=== PATIENT | female | born 1990 | race Caucasian/White ===

== ENCOUNTER 2017-12-26 10:17 | Emergency (ER) | payer MEDICAID ==
--- NOTE | 2017-12-26 11:20 | RADIOLOGY REPORT (SQ) ---
EXAM DESCRIPTION: CHEST PA/LAT COMPLETED DATE/TIME: 12/26/2017 11:12 am REASON FOR STUDY: cough/cp COMPARISON: 12/09/2015 EXAM PARAMETERS: NUMBER OF VIEWS: two views TECHNIQUE: Digital Frontal and Lateral radiographic views of the chest acquired. RADIATION DOSE: NA LIMITATIONS: none FINDINGS: LUNGS AND PLEURA: No opacities, masses or pneumothorax. No pleural effusion. MEDIASTINUM AND HILAR STRUCTURES: No masses or contour abnormalities. HEART AND VASCULAR STRUCTURES: Heart normal size. No evidence for failure. BONES: No acute findings. HARDWARE: None in the chest. OTHER: No other significant finding. IMPRESSION: NO SIGNIFICANT RADIOGRAPHIC FINDING IN THE CHEST. TECHNICAL DOCUMENTATION: JOB ID: [id number] [employer]- All Rights Reserved Reading location - IP/workstation name: [email or web address]
[2017-12-26 11:44] LABS: APPEARANCE,URINE SLIGHTLY-CLOUDY; BILIRUBIN,URINE NEGATIVE (NEGATIVE); COLOR,URINE AMBER; GLUCOSE, URINE NEGATIVE (NEGATIVE); KETONES,URINE NEGATIVE (NEGATIVE); LEUKOCYTE ESTERASE,URINE NEGATIVE (NEGATIVE); NITRITE,URINE NEGATIVE (NEGATIVE); PROTEIN,URINE NEGATIVE (NEGATIVE); URINE SPECIFIC GRAVITY 1.029; UROBILINOGEN,URINE NEGATIVE mg/dL (<2.0)
--- NOTE | 2017-12-26 11:48 | ER Document Report ---
ED General - General Chief Complaint: Breathing Difficulty Stated Complaint: FEVER/COUGH Time Seen by Provider: 12/26/17 10:51 Mode of Arrival: Ambulatory Information source: Patient Notes: Patient reports cough congestion and left flank pain. The pain does radiate down the left side. It is worse with movement or coughing. It is mild to moderate. Is intermittent. She denies any problems with urination. No vaginal bleeding or discharge. Some nausea but no vomiting. She states she is getting tired when she exerts herself. Symptoms are worse with exertion. TRAVEL OUTSIDE OF THE [place] IN LAST 30 DAYS: No - Related Data Allergies/Adverse Reactions: No Known Allergies Allergy (Verified 12/26/17 10:18) Past Medical History - General Information source: Patient - Social History Smoking Status: Current Every Day Smoker Chew tobacco use (# tins/day): No Frequency of alcohol use: Occasional Drug Abuse: None Family History: Reviewed & Not Pertinent Patient has suicidal ideation: No Patient has homicidal ideation: No Neurological Medical History: Denies: Hx Seizures Renal/ Medical History: Denies: Hx Kidney Stones, Hx Peritoneal Dialysis GI Medical History: Denies: Hx Gastroesophageal Reflux Disease Past Surgical History: Reports: Hx Section. Denies: Hx Hysterectomy, Hx Pacemaker - Immunizations Hx Diphtheria, Pertussis, Tetanus Vaccination: Yes Review of Systems - Review of Systems Constitutional: Chills, Malaise Cardiovascular: Chest pain. denies: Palpitations Respiratory: Cough. denies: Sputum -: Yes All other systems reviewed and negative Physical Exam - Vital signs Vitals: Temp Pulse Resp BP Pulse Ox 99.2 F 93 16 122/83 100 12/26/17 10:23 12/26/17 10:23 12/26/17 10:23 12/26/17 10:23 12/26/17 10:23 Interpretation: Normal - General General appearance: Appears well, Alert - HEENT Head: Normocephalic, Atraumatic Eyes: Normal Pupils: PERRL - Respiratory Respiratory status: No respiratory distress Chest status: Nontender Breath sounds: Normal Chest palpation: Normal - Cardiovascular Rhythm: Regular Heart sounds: Normal auscultation Murmur: No - Abdominal Inspection: Normal Distension: No distension Bowel sounds: Normal Tenderness: Nontender Organomegaly: No organomegaly - Back Back: Normal, Nontender - Extremities General upper extremity: Normal inspection, Nontender, Normal color, Normal ROM , Normal temperature General lower extremity: Normal inspection, Nontender, Normal color, Normal ROM , Normal temperature, Normal weight bearing. No: Poncho's sign - Neurological Neuro grossly intact: Yes Cognition: Normal Orientation: AAOx4 Sammy Coma Scale Eye Opening: Spontaneous Bowman Coma Scale Verbal: Oriented Sammy Coma Scale Motor: Obeys Commands Sammy Coma Scale Total: 15 Speech: Normal Motor strength normal: LUE, RUE, LLE, RLE Sensory: Normal - Psychological Associated symptoms: Normal affect, Normal mood - Skin Skin Temperature: Warm Skin Moisture: Dry Skin Color: Normal Course - Vital Signs Vital signs: Temp Pulse Resp BP Pulse Ox 99.2 F 93 16 122/83 100 12/26/17 10:23 12/26/17 10:23 12/26/17 10:23 12/26/17 10:23 12/26/17 10:23 - Diagnostic Test Radiology reviewed: Image reviewed, Reports reviewed - Patient's chest x-ray showed no evidence of infiltrate or edema. Discharge - Discharge Clinical Impression: Viral syndrome Condition: Stable Disposition: HOME, SELF-CARE Instructions: Viral Syndrome ([facility]) Additional Instructions: Please call your primary doctor as soon as possible to arrange follow-up Prescriptions: Tramadol HCl [Ultram 50 mg Tablet] 50 mg PO Q4HP PRN #10 tab PRN Reason: Forms: Return to Work
[2017-12-26 11:59] VITALS: BP 108/66
== END 2017-12-26 11:59 | disposition home or self-care (01) ==
LOC: ER 10:17
DX: B34.9 Viral infection, unspecified (principal); R05 Cough; R10.9 Unspecified abdominal pain; R11.0 Nausea; R53.83 Other fatigue; R53.81 Other malaise; R68.83 Chills (without fever); F17.200 Nicotine dependence, unspecified, uncomplicated; Z87.442 Personal history of urinary calculi; Z87.19 Personal history of other diseases of the digestive system
CPT/HCPCS: 71046; 81001; 81025; 99285

== ENCOUNTER 2018-02-24 10:54 | Emergency (ER) | payer MEDICAID ==
[2018-02-24 11:01] VITALS: BP 124/71
[2018-02-24] MEDS ORDERED: CEPHALEXIN 500 MG CAPSULE PO ONE (12:16)
[2018-02-24] MEDS ORDERED: SULFAMETHOXAZOLE/TRIMETHOPRIM 800-160 MG TABLET PO ONE (12:16)
[2018-02-24] MEDS ORDERED: IBUPROFEN 600 MG TABLET PO ONE (12:16)
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
== END 2018-02-24 12:25 | disposition home or self-care (01) ==
LOC: ER 10:54
DX: L03.317 Cellulitis of buttock (principal); F17.210 Nicotine dependence, cigarettes, uncomplicated
CPT/HCPCS: 99406; 99281; J3490 ×2

== ENCOUNTER 2018-10-19 18:05 | Emergency (ER) | payer OTHER, MEDICAID ==
[2018-10-19] MEDS ORDERED: IBUPROFEN 800 MG TABLET PO ONE (18:50)
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
[2018-10-19 20:31] VITALS: BP 111/66
== END 2018-10-19 20:37 | disposition home or self-care (01) ==
LOC: ER 18:05
DX: S93.402A Sprain of unspecified ligament of left ankle, initial encounter (principal); S00.81XA Abrasion of other part of head, initial encounter; S09.90XA Unspecified injury of head, initial encounter; M79.642 Pain in left hand; M79.672 Pain in left foot; M25.572 Pain in left ankle and joints of left foot; V87.7XXA Person injured in collision between other specified motor vehicles (traffic), initial encounter; F17.200 Nicotine dependence, unspecified, uncomplicated
CPT/HCPCS: 99283; 73610; 73630; 73130; L1902; L4350